=== PATIENT | female | born 1985 | race African-American/Black ===

== ENCOUNTER 2016-08-23 15:08 | Emergency (ER) | payer MEDICAID, OTHER ==
[~2016-08-23] VITALS: Ht 170.2 cm; Wt 90.0 kg
[~2016-08-23 15:08] MED LIST: IBUP-988 PO
[2016-08-23 15:15] VITALS: BP 122/85; PULSE 76; RESP 16; TEMP 98.4; O2SAT 100
[2016-08-23] MEDS ORDERED: KETOROLAC TROMETHAMINE 30 MG/ML (IVP) VIAL IVP ONE (16:00)
--- NOTE | 2016-08-23 16:02 | PD ---
HPI Chief Complaint: Skin Problem Time Seen by Provider: 16:02 Travel History International Travel<30 days: No Contact w/Intl Traveler<30days: No Traveled to known affect area: No History of Present Illness HPI Patient is a 31-year-old female presenting with right arm pain and swelling. She states that 3 days ago there is small bleeding area on the back of the distal right arm. Yesterday she had some swelling and warmth in the region and today has had worsening of this as well as extension of the forearm and dorsum of the hand. She has pain with moving the elbow but his posterior only. Denies any pain in the anterior elbow. She denies any trauma or injury. Last tetanus vaccine greater than 5 years. She denies any weakness or paresthesia in the hand or fingers. She denies fever, chills, nausea, vomiting or lymphadenopathy. She denies any infectious symptoms currently. She states she had a DVT in her leg 3 years ago after and immobility. No recent immobility, long distance travel, surgery. She has had some intermittent swelling in her bilateral calves seems to be related to being on her feet and relieved with rest however they have worsened over the last several days, left greater than right. They're somewhat tender. She denies chest pain and shortness of breath. She is not on aspirin or anticoagulant drugs. She denies secondary to no missed menstrual cycles and does not have intercourse with men. PFSH Past Medical History Asthma: Yes Diminished Hearing: No Respiratory: Yes (ASTHMA ) ?: Not LMP: 08/19/2016 : 3 Para: 2 Past Surgical History Abdominal Surgery: Yes (UMBILICAL HERNIA REPAIR. NEEDS REVISION) Section: Yes (X2) Social History Alcohol Use: No (QUIT 2 YRS AGO) Tobacco Use: No (TWO CIG DAILY) Substance Use: No Allergies-Medications (Allergen,Severity, Reaction): Coded Allergies: Codeine (Verified Allergy, Severe, Itching, 08/23/16) Reported Meds & Prescriptions Reported Meds & Active Scripts Active Cephalexin 500 Mg Tab 500 Mg PO Q6H Bactrim DS (Sulfamethoxazole-Trimethoprim) 800-160 Mg Tab 1 Tab PO BID Naproxen 500 Mg Tab 500 Mg PO BID Review of Systems Except as stated in HPI: all other systems reviewed are Neg Physical Exam Narrative GENERAL: Well-developed and well-nourished adult female in no acute distress. SKIN: 2 cm superficial abrasion on the posterior right distal arm. There is surrounding edema, erythema and warmth which is not circumferential but does go to approximately three quarters of the circumference of the arm posteriorly laterally. Warm and dry. Good turgor without tenting. HEAD: Normocephalic and atraumatic. EYES: PERRL bilaterally, 5mm. EOMI bilaterally. No injection or icterus present. No proptosis. Lids without edema or erythema. ENT: Buccal mucosa pink and moist. Oropharynx free of erythema, tonsillar hypertrophy, masses, swelling, asymmetry and exudates. Uvula midline and airway patent. NECK: Supple, no meningeal signs. Trachea midline, no JVD. CARDIOVASCULAR: Regular rate and rhythm without murmurs, rubs, clicks or gallops. Radial and posterior tibial pulses 2+ bilaterally. Capillary refill less than 2 seconds atenolol fingers of right hand. Trace bilateral pedal edema , left slightly greater than right. Equivocal bilateral Homans sign, left greater than right. RESPIRATORY: Clear to auscultation bilaterally with symmetrical rise and fall, no distress or use of accessory muscles. GASTROINTESTINAL: Non-tender, non-distended. Normal bowel sounds all 4 quadrants. No masses or organomegaly present. MUSCULOSKELETAL: Skin findings to the right upper extremity per above. There is diffuse tenderness with palpation of the posterior right arm and the forearm without any bony tenderness of the elbow. She is normal range of motion in the elbow but does have pain in the posterior elbow with flexion. The forearm is diffusely tender as well as the dorsum of the hand. There is no appreciable warmth or edema in this region. No gait disturbances. Patient freely moving all four extremities spontaneously. Extremities without clubbing, cyanosis, or edema. No obvious deformities. LYMPH: Multiple epitrochlear lymphadenopathies medially, small. Mobile and tender. Negative right axillary lymphadenopathy. Negative bilateral supraclavicular, cervical and facial lymphadenopathy. NEUROLOGIC: CN II-XII grossly intact. Awake and alert. Strength 5/5 bilateral shoulder flexion, shoulder extension, elbow flexion, elbow extension, wrist flexion and wrist extension.Sensation intact and strength 5/5 over radial, median, and ulnar nerve distributions bilaterally. Sensation intact to the distal tip of all fingers of right hand.. Normal speech. PSYCHIATRIC: Appropriate mood and affect; insight and judgment normal. Data Data Last Documented VS Vital Signs Date Time Temp Pulse Resp B/P Pulse Ox O2 Delivery O2 Flow Rate FiO2 08/23/16 15:15 98.4 76 16 122/85 100 Orders Us Arm Venous Doppler (08/23/16 ) Elbow, Complete (4 Vws) (08/23/16 15:57) Basic Metabolic Panel (Bmp) (08/23/16 15:57) Complete Blood Count With Diff (08/23/16 15:57) Iv Access Insert/Monitor (08/23/16 15:57) Ketorolac Inj (Toradol Inj) (08/23/16 16:00) Westergren Sedimentation Rate (08/23/16 15:57) C-Reactive Protein (Crp) (08/23/16 15:57) Urinalysis - C+S If Indicated (08/23/16 15:57) Ed Urine Pregnancytest Poc (08/23/16 15:57) Tetanus/Diphtheria Tox Adult (Tetanus/Di (08/23/16 16:15) Ampicillin-Sulbactam Inj (Unasyn Inj) (08/23/16 16:15) Prothrombin Time / Inr (Pt) (08/23/16 16:12) Act Partial Throm Time (Ptt) (08/23/16 16:12) Us Leg Venous Doppler Bilat (08/23/16 ) Chest, Single Ap (08/23/16 ) Labs Laboratory Tests Test 08/23/16 16:20 White Blood Count 5.7 TH/MM3 Red Blood Count 4.92 MIL/MM3 Hemoglobin 13.4 GM/DL Hematocrit 40.0 % Mean Corpuscular Volume 81.4 FL Mean Corpuscular Hemoglobin 27.2 PG Mean Corpuscular Hemoglobin 33.4 % Concent Red Cell Distribution Width 12.8 % Platelet Count 335 TH/MM3 Mean Platelet Volume 8.3 FL Neutrophils (%) (Auto) 57.3 % Lymphocytes (%) (Auto) 26.7 % Monocytes (%) (Auto) 6.7 % Eosinophils (%) (Auto) 6.0 % Basophils (%) (Auto) 3.3 % Neutrophils # (Auto) 3.3 TH/MM3 Lymphocytes # (Auto) 1.5 TH/MM3 Monocytes # (Auto) 0.4 TH/MM3 Eosinophils # (Auto) 0.3 TH/MM3 Basophils # (Auto) 0.2 TH/MM3 CBC Comment DIFF FINAL Differential Comment Erythrocyte Sedimentation Rate 16 mm/hr Prothrombin Time 10.4 SEC Prothromb Time International 0.9 RATIO Ratio Activated Partial 21.3 SEC Thromboplast Time Urine Collection Type CLEAN CATCH Urine Color YELLOW Urine Turbidity CLEAR Urine pH 7.0 Urine Specific [place] 1.027 Urine Protein NEG mg/dL Urine Glucose (UA) NEG mg/dL Urine Ketones NEG mg/dL Urine Occult Blood TRACE Urine Nitrite NEG Urine Bilirubin NEG Urine Leukocyte Esterase NEG Urine RBC 0-3 /hpf Urine WBC 0-2 /hpf Urine Squamous Epithelial 0-5 /hpf Cells Microscopic Urinalysis Comment CULT NOT INDICATED Sodium Level 143 MEQ/L Potassium Level 4.0 MEQ/L Chloride Level 108 MEQ/L Carbon Dioxide Level 26.5 MEQ/L Anion Gap 9 MEQ/L Blood Urea Nitrogen 9 MG/DL Creatinine 1.00 MG/DL Estimat Glomerular Filtration 79 ML/MIN Rate Random Glucose 81 MG/DL Calcium Level 8.6 MG/DL C-Reactive Protein 0.40 MG/DL MDM Medical Decision Making Medical Screen Exam Complete: Yes Emergency Medical Condition: Yes Interpretation(s) Last 24 hours Impressions Elbow X-Ray 08/23/16 1557 Signed Impressions: Service Date/Time: Tuesday, August 23, 2016 16:23 - CONCLUSION: 1. Mild soft tissue swelling in the region of the elbow. 2. No fracture, dislocation or other bony abnormality. Jasen Ortez MD Upper Extremity Ultrasound 08/23/16 0000 Signed Impressions: Service Date/Time: Tuesday, August 23, 2016 16:58 - CONCLUSION: No evidence of deep venous thrombosis within the right upper extremity. Jasen Ortez MD Lower Extremity Ultrasound 08/23/16 0000 Signed Impressions: Service Date/Time: Tuesday, August 23, 2016 16:41 - CONCLUSION: No evidence of deep venous thrombosis within the lower extremities. Jasen Ortez MD Chest X-Ray 08/23/16 0000 Signed Impressions: Service Date/Time: Tuesday, August 23, 2016 16:29 - CONCLUSION: No acute disease. Jasen Ortez MD Laboratory Tests Test 08/23/16 16:20 White Blood Count 5.7 TH/MM3 (4.0-11.0) Red Blood Count 4.92 MIL/MM3 (4.00-5.30) Hemoglobin 13.4 GM/DL (11.6-15.3) Hematocrit 40.0 % (35.0-46.0) Mean Corpuscular Volume 81.4 FL (80.0-100.0) Mean Corpuscular Hemoglobin 27.2 PG (27.0-34.0) Mean Corpuscular Hemoglobin 33.4 % Concent (32.0-36.0) Red Cell Distribution Width 12.8 % (11.6-17.2) Platelet Count 335 TH/MM3 (150-450) Mean Platelet Volume 8.3 FL (7.0-11.0) Neutrophils (%) (Auto) 57.3 % (16.0-70.0) Lymphocytes (%) (Auto) 26.7 % (9.0-44.0) Monocytes (%) (Auto) 6.7 % (0.0-8.0) Eosinophils (%) (Auto) 6.0 % (0.0-4.0) Basophils (%) (Auto) 3.3 % (0.0-2.0) Neutrophils # (Auto) 3.3 TH/MM3 (1.8-7.7) Lymphocytes # (Auto) 1.5 TH/MM3 (1.0-4.8) Monocytes # (Auto) 0.4 TH/MM3 (0-0.9) Eosinophils # (Auto) 0.3 TH/MM3 (0-0.4) Basophils # (Auto) 0.2 TH/MM3 (0-0.2) CBC Comment DIFF FINAL Differential Comment Erythrocyte Sedimentation Rate 16 mm/hr (0-20) Prothrombin Time 10.4 SEC (9.8-11.6) Prothromb Time International 0.9 RATIO Ratio Activated Partial 21.3 SEC Thromboplast Time (24.3-30.1) Urine Collection Type CLEAN CATCH Urine Color YELLOW (YELLW/STRAW) Urine Turbidity CLEAR (CLEAR) Urine pH 7.0 (5.0-8.5) Urine Specific [place] 1.027 (1.002-1.035) Urine Protein NEG mg/dL (NEG-TRACE) Urine Glucose (UA) NEG mg/dL (NEG) Urine Ketones NEG mg/dL (NEG) Urine Occult Blood TRACE (NEG) Urine Nitrite NEG (NEG) Urine Bilirubin NEG (NEG) Urine Leukocyte Esterase NEG (NEG) Urine RBC 0-3 /hpf (0-3) Urine WBC 0-2 /hpf (0-5) Urine Squamous Epithelial 0-5 /hpf (0-5) Cells Microscopic Urinalysis Comment CULT NOT INDICATED Sodium Level 143 MEQ/L (136-145) Potassium Level 4.0 MEQ/L (3.5-5.1) Chloride Level 108 MEQ/L (98-107) Carbon Dioxide Level 26.5 MEQ/L (21.0-32.0) Anion Gap 9 MEQ/L (5-15) Blood Urea Nitrogen 9 MG/DL (7-18) Creatinine 1.00 MG/DL (0.50-1.00) Estimat Glomerular Filtration 79 ML/MIN (>89) Rate Random Glucose 81 MG/DL (74-106) Calcium Level 8.6 MG/DL (8.5-10.1) C-Reactive Protein 0.40 MG/DL (0.00-0.30) Differential Diagnosis Cellulitis versus septic elbow versus DVT Narrative Course Patient's 31-year-old female presenting with pain and swelling in the right upper extremity. She has an open wound that subsequently developed redness, warmth and pain. She has lymphadenopathy in the epitrochlear region. She is afebrile, nontoxic and has no systemic complaints. Spring pain in the forearm and hand as well but there is no significant edema. She is able to move the elbow with only superficial pain suggesting there is no septic arthritis. She is a history of DVT and also reporting some swelling and pain in her legs intermittently. I believe most likely etiology is infectious however given her history could not rule out DVT. Updated her tetanus today and gave patient Unasyn 3 g. Ordered chest x-ray which was unremarkable for cardiopulmonary process. CBC unremarkable. Sedimentation rate 16, CRP 0.4 which is mild elevation. INR 0.9. UA unremarkable. Metabolic panel shows chloride 108, creatinine 1.00. Ultrasounds were negative for DVT. At this time I believe this most of the represents a cellulitis and this does not rise to the level requiring admission for IV antibiotics. Patient was given Bactrim and Keflex and prescription for anti-inflammatory for comfort. Recommend rest and elevation of the arm and follow up with PCP tomorrow. Patient was given strict return instructions.See discharge paperwork for further instructions. The plan was discussed with the patient who acknowledged their understanding and agreement. Reinforced the follow-up with primary care is critically important. Patient instructed on emergent conditions that should prompt return to ED. Diagnosis Primary Impression: Right arm cellulitis Patient Instructions: Cellulitis (ED), General Instructions Additional Instructions: Keep area clean, dry, and covered with dressing/bandage Take medications as directed Follow-up with PCP tomorrow Return to the ED for any acute worsening of symptoms including worsening swelling, spreading redness, fever, chills, nausea and vomiting Med/Other Pt SpecificInfo: Prescription(s) given Scripts Cephalexin 500 Mg [id number] Mg PO Q6H #40 TAB Prov:Srikanth Saldana MD 08/23/16 Sulfamethoxazole-Trimethoprim (Bactrim DS)800-160 Mg Tab1 Tab PO BID #20 TAB Prov:Srikanth Saldana MD 08/23/16 Naproxen 500 Mg [id number] Mg PO BID #10 TAB Prov:Srikanth Saldana MD 08/23/16 Disposition: 01 DISCHARGE HOME Condition: Stable Kyler Painter III Aug 23, 2016 16:02
[2016-08-23] MEDS ORDERED: TETANUS/DIPHTHERIA TOXOID ADULT 0.5 ML VIAL IM ONE (16:15)
[2016-08-23] MEDS ORDERED: AMPICILLIN-SULBACTAM INJ 3 GM in SODIUM CHLORIDE 0.9% INJ 100 ML IV ONE (16:15)
[2016-08-23 16:27] LABS: AUTOMATED NEUTROPHIL # 3.3 TH/MM3 (1.8-7.7); BASOPHIL # 0.2 TH/MM3 (0-0.2); BASOPHIL % 3.3 % (0.0-2.0); EOSINOPHIL # 0.3 TH/MM3 (0-0.4); HEMO FLAGS DIFF FINAL; LYMPH % 26.7 % (9.0-44.0); LYMPHOCYTE # 1.5 TH/MM3 (1.0-4.8); MEAN CELL VOLUME 81.4 FL (80.0-100.0); MEAN CORPUSCULAR HEMOGLOBIN 27.2 PG (27.0-34.0); MEAN CORPUSCULAR HGB CONC 33.4 % (32.0-36.0); MONO % 6.7 % (0.0-8.0); NEUT % 57.3 % (16.0-70.0); PLATELET COUNT 335 TH/MM3 (150-450); RED BLOOD COUNT 4.92 MIL/MM3 (4.00-5.30); RED CELL DISTRIBUTION WIDTH 12.8 % (11.6-17.2); WHITE BLOOD COUNT 5.7 TH/MM3 (4.0-11.0)
[2016-08-23 16:30] LABS: BLOOD, URINE TRACE (NEG); GLUCOSE,URINE NEG (NEG); KETONE, URINE NEG (NEG); NITRITE,URINE NEG (NEG)
[2016-08-23 16:35] LABS: METHOD OF COLLECTION CLEAN CATCH; RBC, URINE 0-3 /hpf (0-3); URINE COLOR YELLOW (YELLW/STRAW); WBC, URINE 0-2 /hpf (0-5)
[2016-08-23 16:36] LABS: COMMENT (UR) CULT NOT INDICATED; CULTURE IF INDICATED CULT NOT INDICATED; SQUAMOUS EPITHELIAL CELL URINE 0-5 /hpf (0-5)
[2016-08-23 16:37] LABS: BICARBONATE 26.5 MEQ/L (21.0-32.0)
[2016-08-23 16:38] LABS: APTT (PATIENT) 21.3 SEC (24.3-30.1); INTERNATIONAL NORMALIZED RATIO 0.9 RATIO; PROTHROMBIN TIME - PATIENT 10.4 SEC (9.8-11.6)
--- NOTE | 2016-08-23 16:39 | RADHPO ---
EXAM DATE/TIME: 08/23/2016 16:29 [facility] COMPARISON: CHEST PA & LAT, March 23, 2014, 19:37. INDICATIONS : Cough MEDICAL HISTORY : None. SURGICAL HISTORY : None. ENCOUNTER: Initial ACUITY: 1 day PAIN SCORE: 0/10 LOCATION: Bilateral chest FINDINGS: A single view of the chest demonstrates the lungs to be symmetrically aerated without evidence of mas s, infiltrate or effusion. The cardiomediastinal contours are unremarkable. Osseous structures are intact. CONCLUSION: No acute disease. Jasen Ortez MD on August 23, 2016 at 16:37 Board Certified Radiologist. This report was verified electronically.
--- NOTE | 2016-08-23 16:41 | RADHPO ---
EXAM DATE/TIME: 08/23/2016 16:23 [facility] COMPARISON: No previous studies available for comparison. INDICATIONS : Pain and swelling right elbow, feels hot , no known injury MEDICAL HISTORY : blood clot leg SURGICAL HISTORY : None. ENCOUNTER: Initial ACUITY: 3 days PAIN SCORE: 10/10 LOCATION: Right elbow FINDINGS: Multiple view examination of the right elbow demonstrates no joint effusion or fracture. Mild soft t issue swelling is noted in the region of the elbow. The osseous structures are in normal alignment. Bony mineralization is normal. CONCLUSION: 1. Mild soft tissue swelling in the region of the elbow. 2. No fracture, dislocation or other bony abnormality. Jasen Ortez MD on August 23, 2016 at 16:38 Board Certified Radiologist. This report was verified electronically.
--- NOTE | 2016-08-23 17:22 | RADHPO ---
EXAM DATE/TIME: 08/23/2016 16:41 [facility] COMPARISON: No previous studies available for comparison. INDICATIONS : Bialteral lower extremity edema. MEDICAL HISTORY : Asthma. Umbilical hernia. SURGICAL HISTORY : section. Umbilical hernia repair. ENCOUNTER: Initial ACUITY: 2 months PAIN SCORE: 3/10 LOCATION: Bilateral legs. TECHNIQUE: Venous ultrasound of the left and right leg was performed from the inguinal ligament to the proximal calf. Real-time, color Doppler and spectral tracing, compression and augmentation techniques were us ed. FINDINGS: RIGHT LEG: There is normal compressibility of the deep venous system from the inguinal region to the proximal ca lf. No echogenic clot is seen in the lumen of the common femoral, femoral, popliteal, and posterior tibial veins. There is a normal response of the venous system to proximal and distal augmentation an d respiration. LEFT LEG: There is normal compressibility of the deep venous system from the inguinal region to the proximal ca lf. No echogenic clot is seen in the lumen of the common femoral, femoral, popliteal, and posterior tibial veins. There is a normal response of the venous system to proximal and distal augmentation an d respiration. CONCLUSION: No evidence of deep venous thrombosis within the lower extremities. Jasen Ortez MD on August 23, 2016 at 17:20 Board Certified Radiologist. This report was verified electronically.
--- NOTE | 2016-08-23 17:23 | RADHPO ---
EXAM DATE/TIME: 08/23/2016 16:58 [facility] COMPARISON: No previous studies available for comparison. INDICATIONS : Right arm pain and swelling. MEDICAL HISTORY : Asthma. Umbilical hernia. SURGICAL HISTORY : section. Umbilical hernia repair. ENCOUNTER: Initial ACUITY: 1 day PAIN SCORE: 0/10 LOCATION: Right arm. FINDINGS: There is spontaneous flow documented in the brachial, basilic, cephalic, axillary, and subclavian vei ns. The vessels are compressible and augmentation response is documented. No filling defects are se en. The flow is phasic with respiration. Direction of flow in the jugular vein is caudal. CONCLUSION: No evidence of deep venous thrombosis within the right upper extremity. Jasen Ortez MD on August 23, 2016 at 17:21 Board Certified Radiologist. This report was verified electronically.
[2016-08-23] MEDS ORDERED: CEPH500T PO (17:36)
[2016-08-23] MEDS ORDERED: NAPR500T PO (17:36)
[2016-08-23] MEDS ORDERED: BACT800T5 PO (17:36)
[2016-08-23 18:28] VITALS: BP 116/70; PULSE 76; RESP 18; O2SAT 98
== END 2016-08-23 18:30 | disposition home or self-care (01) ==
LOC: PHEFT 15:08
DX: L03.113 Cellulitis of right upper limb (principal); Z23 Encounter for immunization
CPT/HCPCS: 71010; 73080; 80048; 81001; 84703; 85025; 85610; 85652; 85730; 86140; 90471; 90714; 93970; 93971; 96365; 96375; 99284; J0295; J1885

== ENCOUNTER 2016-11-16 22:54 | Inpatient (IN) | payer MEDICAID, OTHER ==
[~2016-11-16] VITALS: Ht 170.2 cm; Wt 87.2 kg
[~2016-11-16 22:54] MED LIST changes: +BACT800T5 PO; +CEPH500T PO; -IBUP-988 PO; +NAPR500T PO
[2016-11-16 22:56] VITALS: BP 134/84; PULSE 86; RESP 16; TEMP 97.7; O2SAT 100
[2016-11-17] VITALS (7 sets, daily range): BP systolic 112–135; BP diastolic 54–87; PULSE 70–85; RESP 16–18; TEMP 98–98.8; O2SAT 97–100
[2016-11-17] MEDS ORDERED: SODIUM CHLOR 0.9% 1000 ML INJ 1,000 ML IV ONE (01:29)
[2016-11-17] MEDS ORDERED: SODIUM CHLORIDE 0.9% FLUSH 10 ML FLUSH IVF PRN (01:30)
[2016-11-17 02:00] LABS: AUTOMATED NEUTROPHIL # 3.8 TH/MM3 (1.8-7.7); BASOPHIL % 0.8 % (0.0-2.0); EOSINOPHIL # 0.1 TH/MM3 (0-0.4); EOSINOPHIL % 1.8 % (0.0-4.0); HEMO FLAGS DIFF FINAL; LYMPH % 26.9 % (9.0-44.0); LYMPHOCYTE # 1.6 TH/MM3 (1.0-4.8); MEAN CELL VOLUME 80.5 FL (80.0-100.0); MEAN CORPUSCULAR HGB CONC 33.6 % (32.0-36.0); NEUT % 63.5 % (16.0-70.0); PLATELET COUNT 319 TH/MM3 (150-450); RED BLOOD COUNT 4.72 MIL/MM3 (4.00-5.30); RED CELL DISTRIBUTION WIDTH 14.1 % (11.6-17.2)
[2016-11-17 02:06] LABS: APTT (PATIENT) 27.3 SEC (24.3-30.1); PROTHROMBIN TIME - PATIENT 11.3 SEC (9.8-11.6)
[2016-11-17 02:16] LABS: ACETAMINOPHEN LESS THAN 2.0 MCG/ML (10.0-30.0); ALT (GPT) 22 U/L (10-53); ANION GAP 10 MEQ/L (5-15); AST (GOT) 11 U/L (15-37); BICARBONATE 26.2 MEQ/L (21.0-32.0); BLOOD UREA NITROGEN 5 MG/DL (7-18); CHLORIDE 103 MEQ/L (98-107); GLOMERULAR FILTRATION RATE 107 ML/MIN (>89); POTASSIUM 3.5 MEQ/L (3.5-5.1); SODIUM (NA) 139 MEQ/L (136-145)
[2016-11-17 02:20] LABS: ALKALINE PHOSPHATASE 62 U/L (45-117); BETA HCG QUANT LESS THAN 1 MIU/ML (0-5); TOTAL BILIRUBIN ADULT 0.6 MG/DL (0.2-1.0)
[2016-11-17 02:50] LABS: BACTERIA, URINE RARE /hpf; BLOOD, URINE NEG (NEG); COMMENT (UR) CULT NOT INDICATED; CULTURE IF INDICATED CULT NOT INDICATED; GLUCOSE,URINE NEG (NEG); KETONE, URINE NEG (NEG); MUCUS URINE FEW /lpf (OCC); NITRITE,URINE NEG (NEG); SQUAMOUS EPITHELIAL CELL URINE 1 /hpf (0-5); URINE COLOR LIGHT-YELLOW (YELLW/STRAW)
[2016-11-17 02:55] LABS: AMPHETAMINE, URINE NEG (NEG); BARBITURATES, URINE NEG (NEG); COCAINE, URINE NEG (NEG)
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
[2016-11-17 06:58] LABS: ANION GAP 8 MEQ/L (5-15); AST (GOT) 11 U/L (15-37); BICARBONATE 25.8 MEQ/L (21.0-32.0); BLOOD UREA NITROGEN 5 MG/DL (7-18); CHLORIDE 106 MEQ/L (98-107); GLOMERULAR FILTRATION RATE 107 ML/MIN (>89); POTASSIUM 3.4 MEQ/L (3.5-5.1); SODIUM (NA) 140 MEQ/L (136-145)
[2016-11-17 07:05] LABS: ALKALINE PHOSPHATASE 59 U/L (45-117); ALT (GPT) 18 U/L (10-53); TOTAL BILIRUBIN ADULT 0.6 MG/DL (0.2-1.0)
--- NOTE | 2016-11-17 10:35 | EKG ---
Date Performed: 11/17/2016 Time Performed: 02:03:07 PTAGE: 31 years EKG: Sinus rhythm INCOMPLETE RIGHT BUNDLE BRANCH BLOCK BORDERLINE ECG NO PREVIOUS TRACING DOCTOR: Val Gaytan Interpretating Date/Time 11/17/2016 10:27:41
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
[2016-11-17] MEDS ORDERED: LORazepam 2 MG/ML VIAL IM PRN ×2 (12:45)
[2016-11-17] MEDS ORDERED: ALUMINUM/MAGNESIUM/SIMETH 30 ML CUP PO PRN (12:45)
[2016-11-17] MEDS ORDERED: LORazepam 0.5 MG TAB PO PRN (12:45)
[2016-11-17] MEDS ORDERED: ACETAMINOPHEN 325 MG TAB PO PRN (12:45)
[2016-11-17] MEDS ORDERED: MAGNESIUM HYDROXIDE SUSP 30 ML CUP PO PRN (12:45)
--- NOTE | 2016-11-17 17:06 | EKG ---
Date Performed: 11/17/2016 Time Performed: 09:14:23 PTAGE: 31 years EKG: NORMAL Sinus rhythm RBBB Compared to prior tracing no significant change BORDERLINE ECG PREVIOUS TRACING : 11/17/2016 02.03 DOCTOR: Val Gaytan Interpretating Date/Time 11/17/2016 17:04:51
[2016-11-18 06:04] VITALS: BP 113/65; PULSE 74; RESP 18; TEMP 98.7; O2SAT 97
[2016-11-18 08:16] LABS: BLOOD UREA NITROGEN 7 MG/DL (7-18); CHLORIDE 105 MEQ/L (98-107); GLOMERULAR FILTRATION RATE 94 ML/MIN (>89); POTASSIUM 3.4 MEQ/L (3.5-5.1); SODIUM (NA) 141 MEQ/L (136-145)
[2016-11-18 08:18] LABS: ANION GAP 11 MEQ/L (5-15); BICARBONATE 25.5 MEQ/L (21.0-32.0); HDL CHOLESTEROL 50.6 MG/DL (40.0-60.0); LDL CHOLESTEROL 51 MG/DL (0-99)
[2016-11-18] MEDS: NICOTINE 14 MG/24 HR PATCH T-DERMAL SCH (08:29)
[2016-11-18] MEDS ORDERED: NICOTINE 21 MG/24 HR PATCH T-DERMAL SCH (09:00)
[2016-11-18 16:31] LABS: HEMOGLOBIN A1a 1.3 %; HEMOGLOBIN A1b 0.8 %; HEMOGLOBIN Ao 85.5 %; HEMOGLOBIN F 1.4 %; HEMOGLOBIN LA1C 1.6 %; HEMOGLOBIN P3 3.2 %
[2016-11-18 18:13] VITALS: BP 116/66; PULSE 80; RESP 18; TEMP 98.5; O2SAT 95
[2016-11-18] MEDS ORDERED: REMOVE OLD NICODERM (NICOTINE) PATCH T-DERMAL SCH (21:00)
[2016-11-18] MEDS: LORazepam 1 MG TAB PO PRN (21:00)
[2016-11-19 06:37] VITALS: BP 108/57; PULSE 78; RESP 16; TEMP 97.8; O2SAT 94
[2016-11-19] MEDS: NICOTINE 14 MG/24 HR PATCH T-DERMAL SCH (09:00)
[2016-11-19] MEDS: LORazepam 1 MG TAB PO PRN (09:18)
--- NOTE | 2016-11-19 13:12 | HHI.DS ---
Psychiatry Discharge Summary Inpatient Psychiatric care?: Yes Advance Directive: No Reason Not Provided: Due to Patient Condition Mental Health AdvanceDirective: No Health Care Proxy: No Admission Admission Date Nov 17, 2016 at 12:36 Admission Diagnosis: (1) Adjustment disorder with mixed disturbance of emotions and conduct ICD Code: F43.25 Brief History Patient presented with suicidal ideation and depression. She was started on Prozac and verbally contracted for safety. Tobacco Use In Past 30 Days: No Tobacco Past 30 Days Alcohol Use: Monthly or Less Hospital Course Started on Prozac 10 mg by mouth daily. Participated in individual and group therapy. No procedures performed. Verbally contract for safety. Results Blood Pressure 108 / 57 Vital Signs Date Time Temp Pulse Resp B/P Pulse Ox O2 Delivery O2 Flow Rate FiO2 11/19/16 06:37 97.8 78 16 108/57 94 11/17/16 09:30 Room Air Laboratory Tests Test 11/17/16 11/17/16 11/17/16 11/18/16 01:45 02:40 06:20 06:25 Blood Urea Nitrogen 5 MG/DL (7-18) 5 MG/DL (7-18) Aspartate Amino Transf 11 U/L (15-37) 11 U/L (15-37) (AST/SGOT) Salicylates Level LESS THAN 1.7 MG/DL (2.8-20.0) Acetaminophen Level LESS THAN 2.0 MCG/ML (10.0-30.0) Urine Bacteria RARE /hpf (NONE) Urine Mucus FEW /lpf (OCC) Potassium Level 3.4 MEQ/L 3.4 MEQ/L (3.5-5.1) (3.5-5.1) Albumin 3.3 GM/DL (3.4-5.0) Laboratory Results Test 11/18/16 06:25 Hemoglobin A1c 5.6 % (4.3-6.0) Triglycerides Level 100 MG/DL (42-150) Cholesterol Level 122 MG/DL (120-200) LDL Cholesterol 51 MG/DL (0-99) HDL Cholesterol 50.6 MG/DL (40.0-60.0) Summary of Procedures None Pending results at discharge: No Medications # of Antipsychotic meds at D/C: 0 Approp Antipsych med options 1 - Minimum of three failed multiple trials of monotherapy. 2 - Documented plan to taper to monotherapy due to previous use of multiple meds OR cross-taper in progress at D/C. 3 - Documentation of augmentation of Clozapine. 4 - Justification other than those listed in allowable values 1-3, document here : Discharge Discharge Date: Nov 19, 2016 Discharge Diagnosis: (1) Adjustment disorder with mixed disturbance of emotions and conduct Diagnosis: Principal ICD Code: F43.25 Mental Status Exam at Disch At the time of discharge the patient was not suicidal, homicidal or psychotic. Cognition was intact and she was competent to make medical decisions. She verbally contracted for safety and will be discharged for outpatient follow up. Pt Condition on Discharge: Stable Discharge Disposition: Discharge Home Discharge Instructions Diet Instructions: As Tolerated, No Restrictions Activities you can perform: Regular-No Restrictions Scheduled Appointment: Jus Andrade Appointment Date: Nov 26, 2016 Appointment Time: 7:30am. Discharge Time <= 30 minutes Discharge/Advance Care Plan Health Problems: (1) Adjustment disorder with mixed disturbance of emotions and conduct Anxiety Goals to promote your health * To prevent worsening of your condition and complications * To maintain your health at the optimal level Directions to meet your goals Take your medications as prescribed Follow your dietary instruction Follow activity as directed Keep your appointments as scheduled Take your immunizations and boosters as scheduled If your symptoms worsen call your PCP, if no PCP go to Urgent Care Center or Emergency Room For 08/03 questions related to your inpatient stay or results of tests pending at discharge, please contact Dr. Sukhi Ness at Smoking is Dangerous to Your Health. Avoid second hand smoking Sukhi Ness MD Nov 19, 2016 13:12
[2016-11-19] MEDS ORDERED: PROZ20CA11 PO (13:13)
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
== END 2016-11-19 16:55 | disposition home or self-care (01) | DRG 882 ==
LOC: NEPC 22:54 → NEDA 11-17 12:36 → H260 11-17 16:25
PROVIDERS: ADMIT Psychiatry & Neurology Psychiatry; ATTEND Psychiatry & Neurology Psychiatry
DX: F43.25 Adjustment disorder with mixed disturbance of emotions and conduct (principal); T50.902A Poisoning by unspecified drugs, medicaments and biological substances, intentional self-harm, initial encounter; Z81.8 Family history of other mental and behavioral disorders; Z62.810 Personal history of physical and sexual abuse in childhood; Z62.811 Personal history of psychological abuse in childhood
CPT/HCPCS: 80048; 80053; 80061; 80307; 81001; 83036; 84702; 84703; 85025; 85610; 85730; 93005; 96360; J7030

== ENCOUNTER 2017-02-03 17:22 | Emergency (ER) | payer MEDICAID, OTHER ==
[~2017-02-03] VITALS: Ht 167.6 cm; Wt 86.0 kg
[~2017-02-03 17:22] MED LIST changes: -BACT800T5 PO; -CEPH500T PO; -NAPR500T PO; +PROZ20CA11 PO
[2017-02-03 17:29] VITALS: BP 111/77; PULSE 106; RESP 16; TEMP 98.5; O2SAT 98
[2017-02-03] MEDS ORDERED: FLUO-1 PO (17:45)
[2017-02-03] MEDS ORDERED: SYMB80AE INH (17:45)
[2017-02-03] MEDS ORDERED: SODIUM CHLORIDE 0.9% FLUSH 10 ML FLUSH IVF PRN (18:00)
[2017-02-03] MEDS ORDERED: methylPREDNISolone SOD SUCC 125 MG/2 ML VIAL IVP ONE (18:00)
--- NOTE | 2017-02-03 18:01 | PD ---
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 Patient reports that when she woke up this morning she had a sharp pain in the center for chest and shortness of breath. She is her albuterol inhaler at home, however she did not take it to work with her today, and her shortness of breath has been progressively getting worse throughout the day. No fevers or recent illness. No cough. She did have a DVT a couple of years ago, is no longer on anticoagulation. No history of PE. She reports that for the last 2 weeks she has been having a foul-smelling vaginal discharge and vaginal itching. She is sexually active with women only. PFSH Past Medical History Asthma: Yes Autoimmune Disease: No Bipolar Disorder: Yes Anxiety: Yes Cancer: No Cardiovascular Problems: No Diabetes: No Diminished Hearing: No Endocrine: No Genitourinary: No Headaches: No Immune Disorder: No Musculoskeletal: No Neurologic: No Psychiatric: No Reproductive: No Respiratory: Yes Seizures: No ?: Not : 3 Para: 2 Past Surgical History Abdominal Surgery: Yes (HERNIA REPAIR) Section: Yes (X2) Social History Alcohol Use: Yes (OCCASSIONALLY) Tobacco Use: No Substance Use: No Allergies-Medications (Allergen,Severity, Reaction): Coded Allergies: Codeine (Verified Allergy, Severe, Itching, 02/03/17) Reported Meds & Prescriptions Reported Meds & Active Scripts Active Prednisone 50 Mg Tab 50 Mg PO DAILY 5 Days Reported Symbicort Inh (Budesonide/Formoterol Fumarate) 80-4.5 Mcg/Act Aero 1 Puff INH Q12HR Prozac (Fluoxetine HCl) 10 Mg Cap 10 Mg PO BID Review of Systems Except as stated in HPI: all other systems reviewed are Neg Physical Exam Narrative GENERAL: Well-developed, well-nourished, awake, alert, comfortable, on cell phone, no acute distress. SKIN: Focused skin assessment warm/dry. No rash. HEAD: Atraumatic. Normocephalic. EYES: Pupils equal and round. No scleral icterus. No injection or drainage. ENT: Mucous membranes pink and moist. NECK: Trachea midline. No JVD. CARDIOVASCULAR: Regular rate and rhythm. RESPIRATORY: No accessory muscle use. Clear to auscultation. Poor air movement bilaterally. Breath sounds equal bilaterally. GASTROINTESTINAL: Abdomen soft, non-tender, nondistended. FRYER LINE HELPER: Exam performed in the presence of female nurse. Normal external genitalia. Normal cervix. Scant whitish/foul-smelling vaginal discharge. No CMT. No adnexal masses or tenderness. MUSCULOSKELETAL: No obvious deformities. No clubbing. No cyanosis. No edema. NEUROLOGICAL: Awake and alert. No obvious cranial nerve deficits. Motor grossly within normal limits. Normal speech. PSYCHIATRIC: Appropriate mood and affect; insight and judgment normal. Data Data Last Documented VS Vital Signs Date Time Temp Pulse Resp B/P Pulse Ox O2 Delivery O2 Flow Rate FiO2 02/03/17 20:12 98.3 95 20 125/72 99 02/03/17 19:00 Room Air Orders Complete Blood Count With Diff (02/03/17 17:56) Comprehensive Metabolic Panel (02/03/17 17:56) D-Dimer (02/03/17 17:56) Act Partial Throm Time (Ptt) (02/03/17 17:56) Prothrombin Time / Inr (Pt) (02/03/17 17:56) Ckmb (Isoenzyme) Profile (02/03/17 17:56) Troponin I (02/03/17 17:56) Urinalysis - C+S If Indicated (02/03/17 17:56) Iv Access Insert/Monitor (02/03/17 17:56) Ecg Monitoring (02/03/17 17:56) Oximetry (02/03/17 17:56) Oxygen Administration (02/03/17 17:56) Chest, Single Ap (02/03/17 17:56) Sodium Chloride 0.9% Flush (Ns Flush) (02/03/17 18:00) Methylprednisolone So Succ Inj (Solumedr (02/03/17 18:00) Albuterol-Ipratropium Neb (Duoneb Neb) (02/03/17 18:00) Ed Urine Pregnancytest Poc (02/03/17 17:56) Gc And Chlamydia Pcr (02/03/17 17:56) Wet Prep Profile (02/03/17 17:56) CKMB (02/03/17 18:15) CKMB% (02/03/17 18:15) Electrocardiogram (02/03/17 17:42) Labs Laboratory Tests Test 02/03/17 02/03/17 02/03/17 18:15 18:50 19:25 White Blood Count 6.2 TH/MM3 Red Blood Count 4.66 MIL/MM3 Hemoglobin 12.4 GM/DL Hematocrit 37.4 % Mean Corpuscular Volume 80.3 FL Mean Corpuscular Hemoglobin 26.6 PG Mean Corpuscular Hemoglobin 33.2 % Concent Red Cell Distribution Width 12.7 % Platelet Count 322 TH/MM3 Mean Platelet Volume 8.1 FL Neutrophils (%) (Auto) 59.8 % Lymphocytes (%) (Auto) 28.0 % Monocytes (%) (Auto) 5.0 % Eosinophils (%) (Auto) 5.1 % Basophils (%) (Auto) 2.1 % Neutrophils # (Auto) 3.8 TH/MM3 Lymphocytes # (Auto) 1.7 TH/MM3 Monocytes # (Auto) 0.3 TH/MM3 Eosinophils # (Auto) 0.3 TH/MM3 Basophils # (Auto) 0.1 TH/MM3 CBC Comment DIFF FINAL Differential Comment Prothrombin Time 10.7 SEC Prothromb Time International 1.0 RATIO Ratio Activated Partial 27.1 SEC Thromboplast Time D-Dimer Quantitative (PE/DVT) LESS THAN 0.19 MG/L FEU Sodium Level 142 MEQ/L Potassium Level 3.6 MEQ/L Chloride Level 107 MEQ/L Carbon Dioxide Level 25.7 MEQ/L Anion Gap 9 MEQ/L Blood Urea Nitrogen 14 MG/DL Creatinine 0.93 MG/DL Estimat Glomerular Filtration 85 ML/MIN Rate Random Glucose 102 MG/DL Calcium Level 8.9 MG/DL Total Bilirubin 0.2 MG/DL Aspartate Amino Transf 13 U/L (AST/SGOT) Alanine Aminotransferase 18 U/L (ALT/SGPT) Alkaline Phosphatase 67 U/L Total Creatine Kinase 581 U/L Creatine Kinase MB 1.8 NG/ML Creatine Kinase MB % 0.3 % Troponin I LESS THAN 0.02 NG/ML Total Protein 7.5 GM/DL Albumin 3.6 GM/DL Urine Color YELLOW Urine Turbidity CLEAR Urine pH 6.0 Urine Specific [place] 1.027 Urine Protein NEG mg/dL Urine Glucose (UA) NEG mg/dL Urine Ketones NEG mg/dL Urine Occult Blood NEG Urine Nitrite NEG Urine Bilirubin NEG Urine Leukocyte Esterase NEG Urine RBC 0-3 /hpf Urine WBC 0-2 /hpf Urine Squamous Epithelial 6-8 /hpf Cells Urine Mucus FEW /lpf Microscopic Urinalysis Comment CULT NOT INDICATED Clue Cells (Wet Prep) NONE SEEN Vaginal Trichomonas (Wet Prep) NONE SEEN Vaginal Yeast (Wet Prep) NONE SEEN Chlamydia trachomatis DNA NOT DETECTED (PCR) Neisseria gonorrhoeae DNA NOT DETECTED (PCR) MDM Medical Decision Making Medical Screen Exam Complete: Yes Emergency Medical Condition: Yes Medical Record Reviewed: Yes Interpretation(s) EKG: Sinus, rate 92, normal axis, normal intervals, incomplete RBBB, no acute ischemic abnormality, unchanged from prior. Differential Diagnosis Asthma exacerbation, PE, ACS, pneumothorax, pericarditis, vulvovaginal candidiasis, bacterial vaginosis, UTI, Narrative Course Vital signs reviewed. Heart rate improved from 106 to 92 without any intervention. CBC is unremarkable. CMP is essentially unremarkable. Cardiac enzymes are negative. D-dimer is less than 0.19. Chest x-ray: No acute cardiopulmonary abnormality is identified. Wet prep is negative for yeast, negative for clue cells, negative for Trichomonas. The patient was given 3 DuoNeb treatments, IV Solu-Medrol, and reports feeling significantly improved. She was made aware of all findings. She is very comfortable. I do not believe the patient's chest pain is cardiac in nature. She is stable for discharge home with outpatient follow-up with a primary care physician this week. She was informed on when to return to the emergency department. She verbalizes understanding and agreement with plan. Diagnosis Primary Impression: Asthma exacerbation Additional Impression: Atypical chest pain Referrals: Primary Care Physician 3 days Additional Instructions: Follow-up with a primary care physician this week. Return to the emergency department for worsening symptoms or any other concerns. Scripts Prednisone 50 Mg Tab50 Mg PO DAILY 5 Days Ref 0 Prov:Orlando Perkins MD 02/03/17 Disposition: 01 DISCHARGE HOME Condition: Stable Orlando Perkins MD Feb 03, 2017 18:01
[2017-02-03] MEDS: RESP: ALBUTEROL 2.5 MG/IPRATROPIUM 0.5 MG NEB (SCH) INH (18:04)
--- NOTE | 2017-02-03 18:09 | RADRPT ---
EXAM DATE/TIME: 02/03/2017 18:04 [place] COMPARISON: CHEST SINGLE AP, August 23, 2016, 16:29. INDICATIONS : Shortness of breath, chest pain, asthma. MEDICAL HISTORY : Asthma. SURGICAL HISTORY : None. ENCOUNTER: Initial ACUITY: 1 day PAIN SCORE: 4/10 LOCATION: Bilateral chest FINDINGS: Portable AP view of the chest demonstrates a normal-sized cardiac silhouette. No effusion, consolidat ion, or pneumothorax is visualized. The bones and soft tissues demonstrate no acute abnormality. CONCLUSION: No acute cardiopulmonary abnormality is identified. Kyler Apple MD on February 03, 2017 at 18:07 Board Certified Radiologist. This report was verified electronically.
[2017-02-03 18:16] VITALS: O2SAT 97
[2017-02-03 18:22] VITALS: BP 140/71; PULSE 109; RESP 20; O2SAT 98
[2017-02-03 18:25] LABS: AUTOMATED NEUTROPHIL # 3.8 TH/MM3 (1.8-7.7); BASOPHIL # 0.1 TH/MM3 (0-0.2); BASOPHIL % 2.1 % (0.0-2.0); EOSINOPHIL # 0.3 TH/MM3 (0-0.4); EOSINOPHIL % 5.1 % (0.0-4.0); HEMATOCRIT 37.4 % (35.0-46.0); HEMO FLAGS DIFF FINAL; LYMPHOCYTE # 1.7 TH/MM3 (1.0-4.8); MEAN CELL VOLUME 80.3 FL (80.0-100.0); MEAN CORPUSCULAR HEMOGLOBIN 26.6 PG (27.0-34.0); MEAN CORPUSCULAR HGB CONC 33.2 % (32.0-36.0); NEUT % 59.8 % (16.0-70.0); PLATELET COUNT 322 TH/MM3 (150-450); RED BLOOD COUNT 4.66 MIL/MM3 (4.00-5.30); RED CELL DISTRIBUTION WIDTH 12.7 % (11.6-17.2); WHITE BLOOD COUNT 6.2 TH/MM3 (4.0-11.0)
[2017-02-03 18:32] LABS: CHLORIDE 107 MEQ/L (98-107); POTASSIUM 3.6 MEQ/L (3.5-5.1); SODIUM (NA) 142 MEQ/L (136-145)
[2017-02-03 18:36] LABS: ANION GAP 9 MEQ/L (5-15); BICARBONATE 25.7 MEQ/L (21.0-32.0); BLOOD UREA NITROGEN 14 MG/DL (7-18)
[2017-02-03 18:39] LABS: ALT (GPT) 18 U/L (10-53); AST (GOT) 13 U/L (15-37); GLOMERULAR FILTRATION RATE 85 ML/MIN (>89)
[2017-02-03 18:40] LABS: APTT (PATIENT) 27.1 SEC (24.3-30.1); PROTHROMBIN TIME - PATIENT 10.7 SEC (9.8-11.6)
[2017-02-03 18:41] LABS: TOTAL BILIRUBIN ADULT 0.2 MG/DL (0.2-1.0)
[2017-02-03 18:42] LABS: ALKALINE PHOSPHATASE 67 U/L (45-117); CREATINE KINASE 581 U/L (26-192)
[2017-02-03 18:54] LABS: CKMB 1.8 NG/ML (0.5-3.6)
[2017-02-03 19:00] VITALS: BP 154/73; PULSE 110; RESP 20; TEMP 97.4; O2SAT 99
[2017-02-03 19:04] LABS: BLOOD, URINE NEG (NEG); GLUCOSE,URINE NEG (NEG); KETONE, URINE NEG (NEG); NITRITE,URINE NEG (NEG)
[2017-02-03 19:09] LABS: MUCUS URINE FEW /lpf (OCC); URINE COLOR YELLOW (YELLW/STRAW)
[2017-02-03 19:10] LABS: COMMENT (UR) CULT NOT INDICATED; CULTURE IF INDICATED CULT NOT INDICATED; RBC, URINE 0-3 /hpf (0-3); WBC, URINE 0-2 /hpf (0-5)
[2017-02-03] MEDS ORDERED: PRED50 PO (19:51)
[2017-02-03 20:12] VITALS: BP 125/72; TEMP 98.3
[2017-02-04 01:20] LABS: CHLAMYDIA PCR NOT DETECTED (NOT DETECT); NEISSERIA PCR NOT DETECTED (NOT DETECT)
--- NOTE | 2017-02-04 14:06 | EKG ---
Date Performed: 02/03/2017 Time Performed: 17:42:36 PTAGE: 32 years EKG: Sinus rhythm POSSIBLE RIGHT VENTRICULAR CONDUCTION DELAY BORDERLINE ECG Compared to prior tracing no significant change PREVIOUS TRACING : 11/17/16 DOCTOR: Smiley Felix Interpretating Date/Time 02/04/2017 13:57:46
== END 2017-02-03 20:15 | disposition home or self-care (01) ==
LOC: PHED 17:22
DX: J45.901 Unspecified asthma with (acute) exacerbation (principal); R07.89 Other chest pain; Z86.718 Personal history of other venous thrombosis and embolism; N89.8 Other specified noninflammatory disorders of vagina; R94.31 Abnormal electrocardiogram [ECG] [EKG]
CPT/HCPCS: 71010; 80053; 81001; 82550; 82552; 84484; 84703; 85025; 85379; 85610; 85730; 87210; 87491; 87591; 93005; 94640; 94664; 96374; 99284; J2930